=== PATIENT | female | born 1950 | race African-American/Black ===

== ENCOUNTER 2024-06-18 11:46 | Observation (INO) | payer MEDICARE ==
[2024-06-18] MEDS ORDERED: METHOCARBAMOL 500 MG TABLET ONE (12:34)
[2024-06-18] MEDS ORDERED: KETOROLAC TROMETHAMINE 15 MG/ML VIAL ONE (12:35)
[2024-06-18] MEDS: METHOCARBAMOL 750 MG TAB PO ONE (12:59)
[2024-06-18] MEDS: KETOROLAC TROMETHAMINE 15 MG/ML VIAL IVPUSH ONE (12:59)
[2024-06-18 13:04] LABS: ABSOLUTE IMMATURE GRANULOCYTES 0.01 x10^3/uL (0.0-0.031); BASOPHILS # 0.03 x10^3/uL (0.01-0.08); EOSINOPHIL % 0.4 % (0.7-5.8); EOSINOPHILS # 0.03 x10^3/uL (0.04-0.36); HEMATOCRIT 35.1 % (34.1-44.9); HEMOGLOBIN 10.7 g/dL (11.2-15.7); MCHC 30.5 g/dl (32.2-35.5); MEAN CELL VOLUME 73.3 fl (79.4-94.8); MEAN PLT VOLUME 9.3 fl (9.4-12.3); MONOCYTE # 0.57 x10^3/uL (0.24-0.86); PLATELET COUNT 395 x10^3/uL (182-369); RDW 13.8 % (12.4-16.6)
[2024-06-18] MEDS ORDERED: ACETAMINOPHEN INJECTION 100 ML ONE (13:06)
[2024-06-18] MEDS: ACETAMINOPHEN 1000 MG/100 ML BAG IVPB ONE (13:14)
[2024-06-18 13:25] LABS: POTASSIUM 3.9 mmol/L (3.5-5.1)
[2024-06-18 13:26] LABS: CALCIUM 9.9 mg/dL (8.5-10.1)
[2024-06-18 13:27] LABS: ALBUMIN 3.3 g/dl (3.4-5.0); BLOOD UREA NITROGEN 14.6 mg/dL (7-18)
[2024-06-18 13:30] LABS: CREATININE 0.7 mg/dL (0.55-1.3)
[2024-06-18 13:32] LABS: BILIRUBIN,TOTAL 0.6 mg/dL (0.2-1); TOT PROT 8.4 g/dl (6.4-8.2)
[2024-06-18 14:20] LABS: HCV DIAGNOSTIC IN-HOUSE W/RFLX NON-REACTIVE (NONREACTIVE); HIV INTERPRETATION NEGATIVE (NEGATIVE)
[2024-06-18] MEDS ORDERED: DOCUSATE SODIUM 100 MG CAPSULE (FP) PO PRN (18:57)
[2024-06-18] MEDS ORDERED: ACETAMINOPHEN 325 MG TABLET (FP) PO PRN (18:58)
[2024-06-18 19:59] VITALS: BMI 33.8
[2024-06-18] MEDS: traMADol HCL 50 MG TABLET PO PRN (21:18)
[2024-06-19 08:55] LABS: HEMATOCRIT 31.7 % (34.1-44.9); HEMOGLOBIN 9.7 g/dL (11.2-15.7); MCHC 30.6 g/dl (32.2-35.5); MEAN PLT VOLUME 9.8 fl (9.4-12.3); PLATELET COUNT 401 x10^3/uL (182-369); RDW 13.9 % (12.4-16.6)
[2024-06-19 08:57] LABS: POTASSIUM 4.1 mmol/L (3.5-5.1)
[2024-06-19 09:03] LABS: BILIRUBIN,TOTAL 0.5 mg/dL (0.2-1)
[2024-06-19 09:04] LABS: BLOOD UREA NITROGEN 12.1 mg/dL (7-18); CALCIUM 9.4 mg/dL (8.5-10.1); MAGNESIUM 1.9 mg/dL (1.8-2.4); TOT PROT 7.4 g/dl (6.4-8.2)
[2024-06-19 09:05] LABS: ALBUMIN 2.8 g/dl (3.4-5.0)
[2024-06-19 09:07] LABS: CREATININE 0.6 mg/dL (0.55-1.3); PHOSPHOROUS 4.8 mg/dL (2.5-4.9)
[2024-06-19] MEDS: BENZOCAINE/MENTHOL (CHLORASEPTIC ) LOZENGE MM PRN (12:18)
[2024-06-20 07:59] LABS: HEMATOCRIT 31.5 % (34.1-44.9); HEMOGLOBIN 9.8 g/dL (11.2-15.7); MCHC 31.1 g/dl (32.2-35.5); MEAN CELL VOLUME 73.3 fl (79.4-94.8); MEAN PLT VOLUME 9.9 fl (9.4-12.3); PLATELET COUNT 385 x10^3/uL (182-369); RDW 13.7 % (12.4-16.6)
[2024-06-20 08:08] LABS: POTASSIUM 4.2 mmol/L (3.5-5.1)
[2024-06-20 08:17] LABS: ALBUMIN 2.8 g/dl (3.4-5.0); BLOOD UREA NITROGEN 12.5 mg/dL (7-18); CALCIUM 9.7 mg/dL (8.5-10.1); MAGNESIUM 1.9 mg/dL (1.8-2.4)
[2024-06-20 08:21] LABS: CREATININE 0.7 mg/dL (0.55-1.3)
[2024-06-20 08:22] LABS: BILIRUBIN,TOTAL 0.5 mg/dL (0.2-1); TOT PROT 7.4 g/dl (6.4-8.2)
[2024-06-20] MEDS: oxyCODONE HCL 5 MG TABLET PO PRN (10:59)
[2024-06-20] MEDS: POLYETHYLENE GLYCOL (HEALTHYLAX) 3350 17 GM PACKET PO SCH (18:26)
[2024-06-21 08:34] LABS: HEMOGLOBIN 9.7 g/dL (11.2-15.7); MCHC 31.3 g/dl (32.2-35.5); MEAN CELL VOLUME 72.9 fl (79.4-94.8); MEAN PLT VOLUME 9.5 fl (9.4-12.3); PLATELET COUNT 354 x10^3/uL (182-369); RDW 13.6 % (12.4-16.6)
[2024-06-21 08:53] LABS: POTASSIUM 4.4 mmol/L (3.5-5.1)
[2024-06-21 09:00] LABS: ALBUMIN 2.7 g/dl (3.4-5.0); CALCIUM 9.9 mg/dL (8.5-10.1)
[2024-06-21 09:02] LABS: BILIRUBIN,TOTAL 0.4 mg/dL (0.2-1); MAGNESIUM 1.7 mg/dL (1.8-2.4); TOT PROT 7.2 g/dl (6.4-8.2)
[2024-06-21 09:04] LABS: CREATININE 0.7 mg/dL (0.55-1.3)
[2024-06-21] MEDS: MAGNESIUM 1GM/D5W - 1 GM/100 ML IVPB IVPB ONE (18:41)
[2024-06-21] MEDS: ACETAMINOPHEN 325 MG TABLET (FP) PO PRN (21:13)
[2024-06-22 07:25] LABS: HEMATOCRIT 33.6 % (34.1-44.9); HEMOGLOBIN 10.4 g/dL (11.2-15.7); MEAN CELL VOLUME 73.5 fl (79.4-94.8); MEAN PLT VOLUME 9.3 fl (9.4-12.3); PLATELET COUNT 349 x10^3/uL (182-369); RDW 13.6 % (12.4-16.6)
[2024-06-22 07:42] LABS: POTASSIUM 4.5 mmol/L (3.5-5.1)
[2024-06-22 07:44] LABS: CALCIUM 9.9 mg/dL (8.5-10.1)
[2024-06-22 07:45] LABS: BLOOD UREA NITROGEN 9.8 mg/dL (7-18); MAGNESIUM 1.5 mg/dL (1.8-2.4)
[2024-06-22 07:48] LABS: CREATININE 0.8 mg/dL (0.55-1.3)
[2024-06-22 07:50] LABS: BILIRUBIN,TOTAL 0.4 mg/dL (0.2-1); TOT PROT 7.8 g/dl (6.4-8.2)
[2024-06-22] MEDS ORDERED: oxyCODONE HCL 5 MG TABLET PO PRN (08:31)
[2024-06-22] MEDS ORDERED: IBUPROFEN 600 MG TABLET (FP) PO PRN (08:31)
[2024-06-22] MEDS: ACETAMINOPHEN 500 MG TABLET (FP) PO SCH (13:09)
[2024-06-22] MEDS: MAGNESIUM SULFATE IN WATER 2 GM/50 ML IVPB IVPB ONE ×2 (18:34→18:50)
[2024-06-22 20:48] VITALS: BP 151/89; PULSE 90; RESP 19; TEMP 98.8
== END 2024-06-22 21:12 | disposition home or self-care (01) ==
LOC: JER 11:46 → JERBED 17:06 → J7W 19:05
PROVIDERS: ADMIT Internal Medicine; ATTEND Physician Assistant
PROC: 3E033NZ Introduction of Analgesics, Hypnotics, Sedatives into Peripheral Vein, Percutaneous Approach (ICD-10-PCS; principal; 2024-06-18)
PROC: 3E0333Z Introduction of Anti-inflammatory into Peripheral Vein, Percutaneous Approach (ICD-10-PCS; 2024-06-18)
PROC: 0H9U3ZX Drainage of Left Breast, Percutaneous Approach, Diagnostic (ICD-10-PCS; 2024-06-18)
PROC: 07D63ZX Extraction of Left Axillary Lymphatic, Percutaneous Approach, Diagnostic (ICD-10-PCS; 2024-06-18)
DX: C50.012 Malignant neoplasm of nipple and areola, left female breast (principal); C77.3 Secondary and unspecified malignant neoplasm of axilla and upper limb lymph nodes; R32 Unspecified urinary incontinence; E66.01 Morbid (severe) obesity due to excess calories; Z68.33 Body mass index [BMI] 33.0-33.9, adult; I10 Essential (primary) hypertension; K59.00 Constipation, unspecified; R79.89 Other specified abnormal findings of blood chemistry; B37.9 Candidiasis, unspecified; D50.9 Iron deficiency anemia, unspecified; E83.42 Hypomagnesemia; Z91.013 Allergy to seafood; Z88.5 Allergy status to narcotic agent; Z99.3 Dependence on wheelchair
CPT/HCPCS: 19083; 19084; 36415; 72192-TC; 73502-TC-LT-FY; 76641-TC-50; 76942-TC; 77065-TC; 77066-TC; 80053; 82728; 83540; 83550; 83735; 84100; 84155; 84165; 85025; 85027; 86803; 87389; 87899; 88305-TC; 93005; 93010; 96365; 96366; 96375; 97116-GP; 97161-GP; 99285-25; A4648; G0279-TC; G0378; G0463; J0131